=== PATIENT | female | born 1985 | race Two or more races ===

== ENCOUNTER 2025-08-26 11:44 | Inpatient (IN) | payer MEDICAID, OTHER ==
[~2025-08-26] VITALS: Ht 157.5 cm; Wt 67.8 kg
--- NOTE | 2025-08-26 12:09 | ED.PDOC ---
History of Present Illness HPI Comments This is a 40 year old female presenting to the ED with chief complaint of flu- like illness. Patient reports that she has been experiencing neck pain with associated upper back pain, right shoulder pain, nasal congestion, headache, fever, chills, epigastric pain, nausea, and vomiting for the past 3 days. Joanne ent relays that she has take Tylenol and Ibuprofen with no relief in her symptoms noted. Patient denies any hematemesis, dysuria, hematuria, flank pain, diarrhea, chest pain, cough, or SOB. Chief Complaint: Nausea/Vomiting Time Seen by MD: 12:07 Reviewed Notes: Nurses Notes, Medications, Allergies Allergies: Coded Allergies: NO KNOWN ALLERGIES (Unverified , 08/26/25) Information Source: Patient Mode of Arrival: Ambulatory Severity: Moderate Timing: Days Duration: Since onset Prehospital treatment: None Past Medical History PAST MEDICAL HISTORY: Denies Surgical History: Surgical History (Other): Intestinal surgery AEROSPACE ENGINEER History: No Pertinent AEROSPACE ENGINEER History Family History Family History: Reviewed,noncontributory to illness Social History Smoker: Non-Smoker Alcohol: Denies ETOH Use Drugs: Denies Drug Use Lives In: Home Constitutional: reports: chills, fever; denies: diaphoresis, fatigue, malaise, sweats, weakness, others EENTM: reports: nose congestion; denies: blurred vision, double vision, ear bleeding, ear discharge, ear drainage, ear pain, ear ringing, eye pain, eye redn ess, hearing loss, mouth pain, mouth swelling, nasal discharge, nose bleeding, nose pain, photophobia, tearing, throat pain, throat swelling, voice changes, others Respiratory: denies: cough, hemoptysis, orthopnea, SOB at rest, shortness of breath, SOB with excertion, stridor, wheezing, others Cardiovascular: denies: chest pain, dizzy spells, diaphoresis, Dyspnea on exertion, edema, irregular heart beat, left arm pain, lightheadedness, palpitations, PND, syncope, others Gastrointestinal: reports: abdominal pain, nausea, vomiting; denies: abdomen distended, blood streaked bowels, constipated, diarrhea, dysphagia, difficulty swallowing, hematemesis, melena, poor appetite, poor fluid intake, rectal bleeding, rectal pain, others Genitourinary: denies: abnormal vagina bleeding, burning, dyspareunia, dysuria, flank pain, frequency, hematuria, incontinence, pain, , vagina discharge, urgency, others Neurological: reports: headache; denies: dizziness, fainting, left sided numbness, left sided weakness, numbness, paresthesia, pre-existing deficit, right sided numbness, right sided weakness, seizure, speech problems, tingling, tremors, weakness, others Musculoskeletal: reports: neck pain, others (Rt shoulder pain); denies: back pain, gout, joint pain, joint swelling, muscle pain, muscle stiffness Integumetry: denies: bruises, change in color, change in hair/nails, dryness, laceration, lesions, lumps, rash, wounds, others Allergic/Immunocompromised: denies: Difficulty Healing, Frequent Infections, Hives, Itching, others Hematologic/Lymphatic: denies: anemia, blood clots, easy bleeding, easy bruising, swollen glands, others Endocrine: denies: excessive hunger, excessive sweating, excessive thirst, excessive urination, flushing, intolerance to cold, intolerance to heat, unexplained weight gain, unexplained weight loss, others Psychiatric: denies: anxiety, bipolar disorder, depression, hopeless, panic disorder, schizophrenia, sleepless, suicidal, others All Other Systems: Reviewed and Negative Physical Exam General Appearance: Moderate Distress HEENT: Normal ENT Inspection, Pharynx Normal, TMs Normal Neck: Full Range of Motion, Non-Tender, Normal, Normal Inspection Respiratory: Chest Non-Tender, Lungs Clear, No Accessory Muscle Use, No Respiratory Distress, Normal Breath Sounds Cardiovascular: No Edema, No JVD, No Murmur, No Gallop, Normal Peripheral Pulses, Regular Rate/Rhythm Breast Exam: Deferred Gastrointestinal: Epigastric, No Organomegaly, No Pulsatile Mass, Normal Bowel Sounds, Soft, Tenderness Genitalia: Deferred Pelvic: Deferred Rectal: Deferred Extremities: No calf tenderness, Normal capillary refill, No pedal edema Musculoskeletal : Apperance: Normal Neurologic: Alert, milk treater II-XII nml as Tested, Motor Weakness, Normal Affect, Normal Mood, No Sensory Deficits Cerebellar Function: Normal Reflexes: Normal Skin: Dry, Normal Color, Warm Lymphatic: No Adenopathy Was a procedure done? Was a procedure done?: No Differential Dx Considerations may include: Gallstones, generalized weakness, electrolyte imbalance X-Ray, Labs, Meds, VS Vital Signs Date Time Temp Pulse Resp B/P (MAP) Pulse Ox O2 Delivery O2 Flow Rate FiO2 08/26/25 19:08 98.1 84 20 135/82 (99) 100 98.1 08/26/25 19:08 84 20 100 Room Air 08/26/25 14:29 98.2 75 16 103/74 (84) 98 98.2 08/26/25 12:52 90 16 99 Room Air* 0 21 08/26/25 12:52 98.3 90 16 121/82 (95) 99 98.3 08/26/25 11:46 98.0 84 16 122/71 99 98.0 Lab Test 08/26/25 12:30 08/26/25 12:21 Range/Units Urine Color Light-yellow Yellow Urine Clarity Clear Clear Urine pH 6.5 5.0-9.0 Urine Specific [place] 1.010 1.001-1.035 Urine Protein Negative Negative Urine Ketones Negative Negative Urine Blood Negative Negative /uL Urine Nitrite Negative Negative Urine Bilirubin Negative Negative Urine Urobilinogen Normal Negative mg/dL Urine Leukocyte Esterase Negative Negative /uL Urine RBC 1 0 - 4 /hpf Urine Microscopic WBC 1 0-5 /HPF Urine Squamous Epithelial Cells Few <5 /hpf Urine Bacteria None seen None Seen /hpf Urine Glucose Normal Normal mg/dL Urine Test Negative Negative White Blood Count 6.3 4.4-10.8 10^3/uL Red Blood Count 4.31 4.0-5.20 10^6/uL Hemoglobin 14.0 12.2-16.2 g/dL Hematocrit 41.1 36.0-46.0 % Mean Corpuscular Volume 95.4 80.0-100.0 fL Mean Corpuscular Hemoglobin 32.5 H 28.0-32.0 pg Mean Corpuscular Hemoglobin Concent 34.1 32.0-36.0 g/dL Red Cell Distribution Width 13.0 11.8-14.3 % Platelet Count 397 140-450 10^3/uL Mean Platelet Volume 6.9 6.9-10.8 fL Neutrophils (%) (Auto) 61.2 37.0-80.0 % Lymphocytes (%) (Auto) 28.0 10.0-50.0 % Monocytes (%) (Auto) 8.1 0.0-12.0 % Eosinophils (%) (Auto) 1.9 0.0-7.0 % Basophils (%) (Auto) 0.8 0.0-2.0 % Neutrophils # (Auto) 3.8 1.6-8.6 10 ^3/uL Lymphocytes # (Auto) 1.8 0.4-5.4 10 ^3/uL Monocytes # (Auto) 0.5 0-1.3 10 ^3/uL Eosinophils # (Auto) 0.1 0-0.8 10 ^3/uL Basophils # (Auto) 0 0-0.2 10 ^3/uL Nucleated Red Blood Cells 0.0 % Sodium Level 139 136-145 mmol/L Potassium Level 3.7 3.5-5.1 mmol/L Chloride Level 103 98-107 mmol/L Carbon Dioxide Level 26 20-31 mmol/L Anion Gap 10 5-15 Blood Urea Nitrogen 10 9-23 mg/dL Creatinine 0.68 0.550-1.02 mg/dL Glomerular Filtration Rate Calc 111 >90 mL/min BUN/Creatinine Ratio 14.7 10.0-20.0 Serum Glucose 88 74-106 mg/dL Calcium Level 9.2 8.7-10.4 mg/dL Current Medications Medications (Trade) Dose Ordered Sig/Sapna Route Start Time Stop Time Status Last Admin Sodium Chloride 1,000 ml @ 1,000 mls/hr Q1H ONCE IV 08/26/25 12:15 08/26/25 13:14 DC 08/26/25 12:51 Ondansetron HCl (Zofran) 4 mg ONCE ONCE IV 08/26/25 12:15 08/26/25 12:16 DC 08/26/25 12:51 Gallbladder US indicates: 1. Liver measures 15.3 cm in length with homogeneous hepatic parenchyma. 2. Sludge noted in the gallbladder no gallbladder wall thickening or dilated common bile duct. Negative sonographic diaz's sign. 3. Right kidney measures 9.3 cm in length with no hydronephrosis. Chest XR indicates: No acute cardiopulmonary disease. The patient's CBC is within normal limits. The chemistry panel is within normal limits The patient was given normal saline as a bolus. The patient was given Zofran 4 mg IV push for nausea. At this time, the urine test is negative The patient is being admitted with a diagnosis of abdominal pain and gallbladder sludge. Images Reviewed?: Images reviewed and evaluated by me Time of 1ST Reevaluation: 16:00 Reevaluation 1ST: Unchanged Patient Education/Counseling: Diagnosis, Treatment, Prognosis Family Education/Counseling: No Family Present SEPSIS Sepsis Screen Date sepsis recognized/suspect: Aug 26, 2025 Time Sepsis recognized/suspect: 1149 Recent Procedure: No On Antibiotic Therapy: No Respiratory Rate >20: No Heart Rate >90: No Temp<36 C (96.8 F) or >38.3 C: No SBP <90 or MAP <65 mmHG: No New Acute Mental Status Change: No Is the patient on CPAP, BIPAP,: No Physician Orders Chest Two Views Routine (08/26/25 12:01) Heplock Iv (08/26/25 12:01) Gallbladder (08/26/25 12:01) Vital Signs Date Time Temp Pulse Resp B/P (MAP) Pulse Ox O2 Delivery O2 Flow Rate FiO2 08/26/25 19:08 98.1 84 20 135/82 (99) 100 98.1 08/26/25 19:08 84 20 100 Room Air 08/26/25 14:29 98.2 75 16 103/74 (84) 98 98.2 08/26/25 12:52 90 16 99 Room Air* 0 21 08/26/25 12:52 98.3 90 16 121/82 (95) 99 98.3 08/26/25 11:46 98.0 84 16 122/71 99 98.0 Laboratory Tests Test 08/26/25 12:21 White Blood Count 6.3 10^3/uL (4.4-10.8) Medications Medications Dose Ordered Sig/Sapna Route Start Time Stop Time Status Last Admin Dose Admin Ondansetron HCl 4 mg ONCE ONCE IV 08/26/25 12:15 08/26/25 12:16 DC 08/26/25 12:51 Sodium Chloride 1,000 ml @ 1,000 mls/hr Q1H ONCE IV 08/26/25 12:15 08/26/25 13:14 DC 08/26/25 12:51 Departure 1 Departure Time of Disposition: 16:00 Impression: Primary Impression: Intractable abdominal pain Additional Impression: Gallbladder sludge Disposition: ADMITTED INPATIENT Admit to: Med Surg Condition: Fair Critical Care Note Critical Care Time?: No Stability Stability form required: Yes Unstable for transfer: ED Physician Assesment (Clinical assesment) Heart Score Heart Score: Heart Score Response (Comments) Value History N/A 0 EKG N/A 0 Age N/A 0 Risk Factors N/A 0 Troponin N/A 0 Total 0 I personally scribed for ANTHONY BOBBY MD ([email or web address]) on 08/26/25 at 12:09. Electronically submitted by Thom Beach ([email or web address]). I personally scribed for ANTHONY BOBBY MD ([email or web address]) on 08/26/25 at 14:03. Electronically submitted by Thom Beach ([email or web address]). I personally scribed for ANTHONY BOBBY MD ([email or web address]) on 08/26/25 at 15:42. Electronically submitted by Thom Beach ([email or web address]). ANTHONY BOBBY MD Aug 26, 2025 12:09
[2025-08-26 12:36] LABS: Hematocrit 41.1 % (36.0-46.0); Hemoglobin 14.0 g/dL (12.2-16.2); Mean Corpuscular Hemoglobin 32.5 pg (28.0-32.0); Mean Corpuscular Volume 95.4 fL (80.0-100.0); Nucleated Red Blood Cells % 0.0 %
[2025-08-26 12:43] LABS: Chloride 103 mmol/L (98-107); Potassium 3.7 mmol/L (3.5-5.1); Sodium 139 mmol/L (136-145)
[2025-08-26 12:44] LABS: Anion Gap 10 (5-15); Carbon Dioxide 26 mmol/L (20-31)
[2025-08-26 12:45] LABS: Calcium 9.2 mg/dL (8.7-10.4)
[2025-08-26 12:49] LABS: BUN/Creatinine Ratio 14.7 (10.0-20.0); Blood Urea Nitrogen 10 mg/dL (9-23); Glucose 88 mg/dL (74-106)
[2025-08-26] MEDS: SODIUM CHLORIDE 0.9% 1,000 ML IV ONE (12:51)
[2025-08-26] MEDS: ONDANSETRON HCL 4 MG/2 ML VIAL IV ONE (12:51)
[2025-08-26 12:52] VITALS: PULSE 90; RESP 16; O2SAT 99
--- NOTE | 2025-08-26 12:53 | DVH ---
INDICATION: pain TECHNIQUE: Multiple real-time sonographic images of the abdomen were obtained. COMPARISON: None FINDINGS: The liver is homogenous in echogenicity. The liver measures 15.3 cm. No intrahepatic bilia ry ductal dilatation is noted. The gallbladder wall measures 0.18 cm and is unremarkable. Sludge noted in the gallbladder. No galls tones is seen. The common duct measures 0.43 cm and is unremarkable. No pericholecystic fluid is n oted. NEGATIVE SONOGRAPHIC GOEL'S SIGN The right kidney measures 9.3cm. No hydronephrosis. The pancreas is not well visualized due to obscuration from bowel gas. The visualized portions of the IVC and aorta are grossly unremarkable. IMPRESSION: 1. Liver measures 15.3 cm in length with homogeneous hepatic parenchyma. 2. Sludge noted in the gallbladder no gallbladder wall thickening or dilated common bile duct. Negati ve sonographic goel's sign. 3. Right kidney measures 9.3 cm in length with no hydronephrosis.
[2025-08-26 14:46] LABS: Urine Protein, UAD Negative (Negative)
--- NOTE | 2025-08-26 15:28 | DVH ---
XY CHEST TWO VIEWS ROUTINE CLINICAL HISTORY: pain COMPARISON: None TECHNIQUE: Frontal and lateral view of the chest was obtained FINDINGS: Lines and Tubes: None Lungs: No focal consolidation. Pleura: No effusion. No pneumothorax. Cardiomediastinal contours: Unremarkable Bones: No acute osseous abnormality. IMPRESSION: No acute cardiopulmonary disease.
[2025-08-26 20:53] LABS: Alanine Aminotransferase 28.0 U/L (7-40); Alkaline Phosphatase 77.0 U/L (46-116); Bilirubin, Direct 0.2 mg/dL (<0.3); Bilirubin, Total 0.6 mg/dL (0.2-1.0); Magnesium 2.0 mg/dL (1.6-2.6); Total Protein 7.9 g/dL (5.7-8.2)
[2025-08-26 20:55] LABS: Amphetamine Screen, Urine Neg (NEGATIVE); Barbiturate Scree,Urine Neg (NEGATIVE); Benzodiazephine Screen, Urine Neg (NEGATIVE); Cannabinoid Screen, Urine Neg (NEGATIVE); Cocaine Screen, Urine Neg (NEGATIVE); Opiate Scree,Urine Neg (NEGATIVE); Phencyclidine Screen, Urine Neg (NEGATIVE)
[2025-08-26 20:55] LABS: Albumin 4.9 g/dL (3.2-4.8)
--- NOTE | 2025-08-26 20:56 | DVHHPRES ---
History of Present Illness Resident Creating Document: ANASTACIO GORDON RESIDENT History of Present Illness Ms. Coleman 40-year-old female with prior medical history of SBO status post exploratory laparotomy in 2006, who presents today with chief complaint of right shoulder pain and generalized weakness. She refers a week ago she slipped when getting in the shower and went to grab onto the wall to avoid the fall when she felt a pop in her right shoulder. Since then, the patient has had intense sharp pain in the right shoulder, intensity 10/10, aggravated by moving her arm, with no relieving factors. Additionally refers 4 days of febrile sensation, chills, headache, fatigue, and burning epigastric pain, nonradiating, 4/10 intensity, without aggravating or relieving factors . She denies weakness and numbness of her right arm or hand,cough, chest pain, rhinorrhea, nausea, vomiting, diarrhea, and palpitations. Due to persistence of symptoms she so ught medical attention at the emergency department. On evaluation in the ED, the patient was in mild distress, vital signs were stable. Initial labs show CBC and chemical range. UA and UDS without significant findings. Chest x-ray shows no acute cardiopulmonary disease. Gallbladder ultrasound shows sludge without wall thickening. X-ray of the right shoulder shows calcification in the soft tissue adjacent to the greater tuberosity of the proximal right humerus which may represent an avulsion fracture. She was admitted for further workup and management. Prior medical history: SBO status post exploratory laparotomy in 2006 Prior surgical history: Exploratory laparotomy, 1 Allergies: Denies Social: Denies any use of drugs, alcohol, and tobacco. Status with her mother and her children and feels safe. Review of Systems Review of Systems Constitutional: Refers chills, faitgue, febrile sensation Denies weight loss\. HEENT: Denies changes in vision and hearing. Respiratory: Denies shortness of breath and cough Cardiovascular: Denies chest discomfort or palpitations GI: Denies abdominal distention, abdominal pain, diarrhea : Denies dysuria and urinary frequency. Musculoskeletal: Refers pain in right shoulder with limited mobility Skin: Denies rash and pruritus. Neurological: denies dizziness headache vision or hearing problems Allergies: Coded Allergies: NO KNOWN ALLERGIES (Unverified , 08/26/25) Exam Vital Signs Vital Signs Date Time Temp Pulse Resp B/P (MAP) Pulse Ox O2 Delivery O2 Flow Rate FiO2 10/16/25 19:08 98.1 84 20 135/82 (99) 100 98.1 08/26/25 19:08 Room Air 08/26/25 12:52 0 21 Exam General: The patient alert and oriented in person place and time. Patient following commands HEENT: Normocephalic, atraumatic, normal reactive pupils, EOM intact, pink conjunctiva, pink moist mucous membrane Respiratory/pulmonary: Bilateral chest expansion, no pain on palpation of chest wall, clear lungs bilaterally, vesicular murmurs present in almost all lung hernandez, no associated crackles or wheezes. Cardiovascular: Normal RRR, normal S1 and S2, no murmurs Abdomen: Abdomen nondistended, normal bowel sounds, soft, there is no pain to palpation in any of the abdominal quadrants, no palpable masses. Extremities: No deformities, there is no peripheral edema present at the lower extremities, normal pulses, pain on palpation of right shoulder, limited forward mobility and abduction of right arm due to pain on passive movement and active movements, patient is unable to abduct right arm greater than 45, exam of left arm and shoulder without alterations Skin: No rashes or pruritus, there is no sacral edema present at this time. Neurological: Intact cranial nerves with no focal neurologic deficits Labs/Xrays Labs Test 08/26/25 12:30 08/26/25 12:21 Range/Units Urine Color Light-yellow Yellow Urine Clarity Clear Clear Urine pH 6.5 5.0-9.0 Urine Specific [place] 1.010 1.001-1.035 Urine Protein Negative Negative Urine Ketones Negative Negative Urine Blood Negative Negative /uL Urine Nitrite Negative Negative Urine Bilirubin Negative Negative Urine Urobilinogen Normal Negative mg/dL Urine Leukocyte Esterase Negative Negative /uL Urine RBC 1 0 - 4 /hpf Urine Microscopic WBC 1 0-5 /HPF Urine Squamous Epithelial Cells Few <5 /hpf Urine Bacteria None seen None Seen /hpf Urine Glucose Normal Normal mg/dL Urine Test Negative Negative Urine Opiates Screen Neg NEGATIVE Urine Fentanyl Screen Neg NEGATIVE Urine Barbiturates Screen Neg NEGATIVE Urine Phencyclidine Screen Neg NEGATIVE Urine Amphetamines Screen Neg NEGATIVE Urine Benzodiazepines Screen Neg NEGATIVE Urine Cocaine Screen Neg NEGATIVE Urine Cannabinoids Screen Neg NEGATIVE White Blood Count 6.3 4.4-10.8 10^3/uL Red Blood Count 4.31 4.0-5.20 10^6/uL Hemoglobin 14.0 12.2-16.2 g/dL Hematocrit 41.1 36.0-46.0 % Mean Corpuscular Volume 95.4 80.0-100.0 fL Mean Corpuscular Hemoglobin 32.5 H 28.0-32.0 pg Mean Corpuscular Hemoglobin Concent 34.1 32.0-36.0 g/dL Red Cell Distribution Width 13.0 11.8-14.3 % Platelet Count 397 140-450 10^3/uL Mean Platelet Volume 6.9 6.9-10.8 fL Neutrophils (%) (Auto) 61.2 37.0-80.0 % Lymphocytes (%) (Auto) 28.0 10.0-50.0 % Monocytes (%) (Auto) 8.1 0.0-12.0 % Eosinophils (%) (Auto) 1.9 0.0-7.0 % Basophils (%) (Auto) 0.8 0.0-2.0 % Neutrophils # (Auto) 3.8 1.6-8.6 10 ^3/uL Lymphocytes # (Auto) 1.8 0.4-5.4 10 ^3/uL Monocytes # (Auto) 0.5 0-1.3 10 ^3/uL Eosinophils # (Auto) 0.1 0-0.8 10 ^3/uL Basophils # (Auto) 0 0-0.2 10 ^3/uL Nucleated Red Blood Cells 0.0 % Sodium Level 139 136-145 mmol/L Potassium Level 3.7 3.5-5.1 mmol/L Chloride Level 103 98-107 mmol/L Carbon Dioxide Level 26 20-31 mmol/L Anion Gap 10 5-15 Blood Urea Nitrogen 10 9-23 mg/dL Creatinine 0.68 0.550-1.02 mg/dL Glomerular Filtration Rate Calc 111 >90 mL/min BUN/Creatinine Ratio 14.7 10.0-20.0 Serum Glucose 88 74-106 mg/dL Hemoglobin A1c 4.9 <5.7 % A1C Calcium Level 9.2 8.7-10.4 mg/dL Phosphorus Level 3.2 2.4-5.1 mg/dL Magnesium Level 2.0 1.6-2.6 mg/dL Total Bilirubin 0.6 0.2-1.0 mg/dL Direct Bilirubin 0.2 <0.3 mg/dL Aspartate Amino Transferase (AST) 23 13-40 U/L Alanine Aminotransferase (ALT) 28 7-40 U/L Alkaline Phosphatase 77 46-116 U/L Total Protein 7.9 5.7-8.2 g/dL Albumin 4.9 H 3.2-4.8 g/dL Vitamin B12 Level 1157 H 211-911 pg/mL SEPSIS Sepsis Screen Date sepsis recognized/suspect: Aug 26, 2025 Time Sepsis recognized/suspect: 1909 Recent Procedure: No On Antibiotic Therapy: No Respiratory Rate >20: No Heart Rate >90: No Temp<36 C (96.8 F) or >38.3 C: No SBP <90 or MAP <65 mmHG: No New Acute Mental Status Change: No Is the patient on CPAP, BIPAP,: No Physician Orders Magnesium (08/26/25 20:27) Hepatic Panel (08/26/25 20:27) Drug Screen (08/26/25 20:27) Rapid Influenza A&B (08/26/25 20:27) Covid19 Antigen Elvira (08/26/25 ) Phosphorus (08/26/25 20:27) Thyroid Stimulating Hormone (08/26/25 20:27) Vitamin D, 25-Hydroxy (08/26/25 20:27) Complete Blood Count (08/27/25 04:00) Basic Metabolic Panel (08/27/25 04:00) Allergies (08/26/25 20:47) Condition: Stable (08/26/25 20:47) Admit (08/26/25 20:47) Code Status (08/26/25 20:47) Vital Signs .PER UNIT PROTOCOL (08/26/25 20:47) Review Orders With Adm.Md (08/26/25 20:47) Regular Diet (08/27/25 Breakfast) Notify Md Of Changes From Base (08/26/25 20:47) Advance Directive (08/26/25 20:47) Patient Condition (08/26/25 20:47) Allergies (08/26/25 20:47) Stat Ekg For Chest Pain (08/26/25 20:47) Notify Md Of Changes From Base (08/26/25 20:47) Emergency Dysrhythmia Protocol (08/26/25 20:47) Rhythm Strips Once Every Shift (08/26/25 20:47) R Shoulder 2+ View Xray (08/26/25 20:47) NS (08/26/25 21:00) NS (08/26/25 21:00) Ketorolac Injection (Toradol Injection) (08/26/25 21:00) Ketorolac Injection (Toradol Injection) (08/26/25 21:00) Acetaminophen Tablet (Tylenol Tablet) (08/26/25 21:00) Pantoprazole (Protonix) (08/26/25 21:00) Pantoprazole (Protonix) (08/27/25 10:00) Vital Signs Date Time Temp Pulse Resp B/P (MAP) Pulse Ox O2 Delivery O2 Flow Rate FiO2 08/26/25 19:08 98.1 84 20 135/82 (99) 100 98.1 08/26/25 19:08 84 20 100 Room Air 08/26/25 14:29 98.2 75 16 103/74 (84) 98 98.2 Laboratory Tests Test 08/26/25 12:21 White Blood Count 6.3 10^3/uL (4.4-10.8) Medications Medications Dose Ordered Sig/Sapna Route Start Time Stop Time Status Last Admin Dose Admin Ondansetron HCl 4 mg ONCE ONCE IV 08/26/25 12:15 08/26/25 12:16 DC 08/26/25 12:51 4 MG Sodium Chloride 1,000 ml @ 1,000 mls/hr Q1H ONCE IV 08/26/25 12:15 08/26/25 13:14 DC 08/26/25 12:51 1,000 MLS/HR Assessment/Plan Assessment/Plan Assessment and Plan: Intractable Arm Pain secondary to Right shoulder Avulsion fracture R/o Rotator cuff tear - Right shoulder xray: Calcification is noted in the soft tissue adjacent to the greater tuberosity of the proximal right humerus. This may represent an avulsion fracture calcified tendinitis. - Toradol 15 mg IV q 6 hours PRN - [place] 5/325 mg PO once - Orthopedics has been consulted GERD - Protonix 40 mg IV daily Biliary sludge - with gallbladder ultrasound: Sludge in the gallbladder no gallbladder wall t hickening or dilated bile duct. Negative sonographic Thapa's sign. Viral syndrome Influenza ruled out - Influenza A and B negative Rule out ACS - Ordered EKG, troponin and Echocardiogram Covid ruled out - COVID negative Diet: Regular DVT prophylaxis: Patient is ambulatory GI prophylaxis: Protonix 40 mg IV daily Case discussed with Dr. Huang Goals of care discussed with the patient for over 25 minutes. FULL CODE. Plan discussed with: Patient, Other (Nurses) My Orders Orders - ANASTACIO GORDON RESIDENT Procedure Category Date Status Time Magnesium LAB 08/26/25 In Process 20:27 Hepatic Panel LAB 08/26/25 In Process 20:27 Drug Screen LAB 08/26/25 In Process 20:27 Rapid Influenza A&B LAB 08/26/25 Logged 20:27 Covid19 Antigen Elvira LAB 08/26/25 Logged Phosphorus LAB 08/26/25 In Process 20:27 Thyroid Stimulating LAB 08/26/25 In Process Hormone 20:27 Vitamin D, 25-Hydroxy LAB 08/26/25 In Process 20:27 Complete Blood Count LAB 08/27/25 Verified 04:00 Basic Metabolic Panel LAB 08/27/25 Verified 04:00 Allergies [facility] 08/26/25 Transmitted 20:47 Condition: Stable [facility] 08/26/25 Transmitted 20:47 Admit ADMIT 08/26/25 Transmitted 20:47 Code Status CODE 08/26/25 Transmitted 20:47 Vital Signs [facility] 08/26/25 Verified 20:47 Review Orders With [facility] 08/26/25 Verified Adm. 20:47 Regular Diet DIET 08/27/25 Verified Breakfast Notify Md Of Changes [facility] 08/26/25 Verified From Base 20:47 Advance Directive [facility] 08/26/25 Verified 20:47 Patient Condition ORDERS 08/26/25 Verified 20:47 Allergies [facility] 08/26/25 Verified 20:47 Stat Ekg For Chest [facility] 08/26/25 Verified Pain 20:47 Notify Md Of Changes [facility] 08/26/25 Verified From Base 20:47 Emergency Dysrhythmia [facility] 08/26/25 Verified Protocol 20:47 Rhythm Strips Once [facility] 08/26/25 Verified Every Shift 20:47 R Shoulder 2+ View XY 08/26/25 Transmitted Xray 20:47 NS PHA 08/26/25 Verified 21:00 NS PHA 08/26/25 Verified 21:00 Ketorolac Injection PHA 08/26/25 Verified (Toradol Injection) 21:00 Ketorolac Injection PHA 08/26/25 Verified (Toradol Injection) 21:00 Acetaminophen Tablet PHA 08/26/25 Verified (Tylenol Tablet) 21:00 Pantoprazole PHA 08/26/25 Verified (Protonix) 21:00 Pantoprazole PHA 08/27/25 Verified (Protonix) 10:00 Date of Service: Aug 26, 2025 Billing Provider: MIRANDA HUANG MD Common Visit Codes: [id number] INP/OBS CARE (HIGH) Secondary Visit Codes: [id number] CARE PLAN 30 MINUTES ANASTACIO GORDON RESIDENT Aug 26, 2025 20:56 GILMER YANG RESIDENT Aug 27, 2025 05:14
[2025-08-26] MEDS: SODIUM CHLORIDE 0.9% 500 ML IV ONE (21:00)
[2025-08-26] MEDS ORDERED: ACETAMINOPHEN 325 MG TAB PO PRN (21:00)
--- NOTE | 2025-08-26 21:31 | DVH ---
CLINICAL INDICATION: Recent trauma w. pain TECHNIQUE: 3 radiographic views of the right shoulder were obtained. Comparison: None FINDINGS/IMPRESSION: Calcification is noted in the soft tissues adjacent to the greater tuberosity of the proximal right h umerus. This may represent an avulsion fracture calcified tendinitis. There are no prior studies for comparison. If symptoms persist consider MRI of the shoulder.
[2025-08-26] MEDS: KETOROLAC TROMETH 30 MG/ML 1ML VIAL IV ONE (21:50)
[2025-08-26] MEDS: PANTOPRAZOLE 40 MG/10 ML VIAL INJ IV ONE (21:50)
[2025-08-26 22:06] VITALS: BP 122/77; PULSE 65; RESP 16; TEMP 98.1; O2SAT 99
[2025-08-26 22:36] VITALS: BP 122/77; PULSE 65; RESP 16; TEMP 98.1; O2SAT 99
[2025-08-26] MEDS: SODIUM CHLORIDE 0.9% 1,000 ML IV SCH (23:00)
[2025-08-26 23:36] LABS: COVID19 ANTIGEN SOFIA FIA NEGATIVE (NEGATIVE)
[2025-08-27 01:00] VITALS: BP 113/72; PULSE 76; RESP 16; TEMP 97.7; O2SAT 96
[2025-08-27] MEDS: HYDROcodone-ACET 5/325MG TAB PO ONE (03:00)
[2025-08-27] MEDS: KETOROLAC TROMETH 30 MG/ML 1ML VIAL IV PRN (03:25)
[2025-08-27 05:00] VITALS: BP 107/75; PULSE 68; RESP 16; TEMP 97.6; O2SAT 98
[2025-08-27 07:27] LABS: Hematocrit 38.8 % (36.0-46.0); Hemoglobin 13.3 g/dL (12.2-16.2); Mean Corpuscular Hemoglobin 32.7 pg (28.0-32.0); Mean Corpuscular Volume 95.3 fL (80.0-100.0); Nucleated Red Blood Cells % 0.0 %
[2025-08-27 07:41] LABS: Anion Gap 12 (5-15); Carbon Dioxide 23 mmol/L (20-31); Chloride 106 mmol/L (98-107); Potassium 3.6 mmol/L (3.5-5.1); Sodium 141 mmol/L (136-145)
[2025-08-27 07:48] LABS: BUN/Creatinine Ratio 9.7 (10.0-20.0); Glucose 76 mg/dL (74-106)
[2025-08-27 07:52] LABS: Calcium 9.0 mg/dL (8.7-10.4)
[2025-08-27 07:53] LABS: Blood Urea Nitrogen 6 mg/dL (9-23)
[2025-08-27 09:00] VITALS: BP 123/87; PULSE 63; RESP 16; TEMP 98.3; O2SAT 97
[2025-08-27] MEDS: PANTOPRAZOLE 40 MG/10 ML VIAL INJ IV SCH (09:51)
--- NOTE | 2025-08-27 12:31 | DVHPN2 ---
Subjective The patient is seen and examined at bedside. No complaint today. Reviewed: Care Plan, H&P, Labs, Medications, Previous Orders, Radiology Changes from previous H/P or p: No Changes Objective Vitals Vital Signs Date Time Temp Pulse Resp B/P (MAP) Pulse Ox O2 Delivery O2 Flow Rate FiO2 08/27/25 09:00 98.3 63 16 123/87 (99) 97 98.3 08/26/25 22:36 Room Air* 0 21 Intake/Output Intake and Output 08/27/25 07:00 Intake Total 1240 ml Balance 1240 ml Intake Oral 240 ml IV Total 1000 ml # Voids 1 General Appearance: Alert, Oriented X3, Cooperative, No acute distress HEENT: Atraumatic, PERRLA, EOMI, Mucous membr. moist/pink Neck: Supple Lungs: Clear to auscultation, Normal air movement Cardiovascular: Regular rate, Normal S1, Normal S2, No murmurs, Gallops, Rubs Abdomen: Normal bowel sounds, Soft, No tenderness Neuro: Cranial nerves 3-12 NL Psych/Mental Status: Mental status NL Medications Current Medications Medications Dose Ordered Sig/Sapna Route Start Time Stop Time Status Last Admin Dose Admin Sodium Chloride 1,000 ml @ 50 mls/hr Q20H IV 08/26/25 21:00 08/26/25 23:00 50 MLS/HR Ketorolac Tromethamine 15 mg Q6HPRN PRN IV 08/27/25 03:00 09/01/25 02:59 08/27/25 11:50 15 MG Acetaminophen 325 mg Q4HP PRN PO 08/26/25 21:00 Hold Pantoprazole Sodium 40 mg DAILY IV 08/27/25 10:00 08/27/25 09:51 40 MG Laboratory Results Laboratory Tests 08/27/25 05:25 Chemistry Test 08/27/25 05:25 Calcium Level 9.0 mg/dL (8.7-10.4) Urinalysis Test 08/26/25 12:30 Urine Color Light-yellow (Yellow) Urine Clarity Clear (Clear) Urine pH 6.5 (5.0-9.0) Urine Specific [place] 1.010 (1.001-1.035) Urine Protein Negative (Negative) Urine Ketones Negative (Negative) Urine Blood Negative /uL (Negative) Urine Nitrite Negative (Negative) Urine Bilirubin Negative (Negative) Urine Urobilinogen Normal mg/dL (Negative) Urine Leukocyte Esterase Negative /uL (Negative) Urine RBC 1 /hpf (0 - 4) Urine Microscopic WBC 1 /HPF (0-5) Urine Squamous Epithelial Cells Few /hpf (<5) Urine Bacteria None seen /hpf (None Seen) Urine Glucose Normal mg/dL (Normal) Urine Test Negative (Negative) Labs and/or images reviewed: Labs reviewed by me Assessment/Plan Assessment/Plan Intractable Arm Pain secondary to Right shoulder Avulsion fracture R/o Rotator cuff tear - Right shoulder xray: Calcification is noted in the soft tissue adjacent to the greater tuberosity of the proximal right humerus. This may represent an avulsion fracture calcified tendinitis. GERD Biliary sludge Viral syndrome Continuing current management. Continuing with pain medication. Waiting for orthopedic surgeon to see the patient. This medical document was created using an electronic medical record system with [employer] direct computerized dictation system. Although this document has been carefully reviewed, there may still be some phonetic and typographical errors. These areas are purely typographical due to imperfections of the software programs, and do not reflect any compromise in the patient's medical care. Plan discussed with: Patient Date of Service: Aug 27, 2025 Billing Provider: ALPA RAMOS MD Common Visit Codes: [id number] INP/OBS CARE(HIGH) ALPA RAMOS MD Aug 27, 2025 12:31
[2025-08-27 13:00] VITALS: BP 118/82; PULSE 65; RESP 16; TEMP 98; O2SAT 97
--- NOTE | 2025-08-27 14:00 | DVH ---
CLINICAL INFORMATION: Pain. TECHNIQUE: Multisequence multiplanar MRI images of the right shoulder were obtained without contrast . COMPARISON: XY R SHOULDER 2+ VIEW XRAY on DOS: 08/26/25 FINDINGS: Acromioclavicular joint: There is mild acromioclavicular hypertrophy and mild edema. There is type 2 acromion. Small amount of fluid in the subacromial / subdeltoid bursa. Rotator cuff tendons: Mild tendinosis of the distal supraspinatus and infraspinatus tendons. Mild bur jess surface fraying of the distal infraspinatus tendon. Subscapularis and teres minor tendons are int act. Biceps tendon: No significant tendinosis. No evidence of attrition or tear. Labrum: No labral tear identified. Bones: No fracture or focal marrow contusion. Muscles: There is edema and small to moderate amount of fluid interposed along the fascial plane betw een the posterior deltoid muscle and the infraspinatus and teres minor muscles, may be due to strain and/or myofascial tear in the appropriate clinical setting. Other: Motion artifact limits evaluation. IMPRESSION: 1. Motion limited study. 2. Tendinosis of the distal supraspinatus and infraspinatus tendons with mild bursal surface fraying of the distal infraspinatus tendon. 3. Edema and small to moderate amount of fluid interposed between the posterior deltoid muscle and in fraspinatus and teres minor muscles, may be due to strain and/or myofascial tear. Correlate with clin ical findings. 4. Mild acromioclavicular hypertrophy with mild subacromial / subdeltoid bursitis.
[2025-08-27 17:00] VITALS: BP 115/81; PULSE 69; RESP 17; TEMP 98.1; O2SAT 99
[2025-08-27 21:00] VITALS: BP 126/90; PULSE 67; RESP 20; TEMP 98.3; O2SAT 98
[2025-08-28 00:54] VITALS: BP 122/77; PULSE 72; RESP 20; TEMP 98.1; O2SAT 98
[2025-08-28 05:00] VITALS: BP 118/77; PULSE 67; RESP 20; TEMP 97.7; O2SAT 97
--- NOTE | 2025-08-28 06:47 | DVHINCON2 ---
Date of service: Aug 28, 2025 Reason for Consultation Right shoulder pain History of Present Illness 40 yo F sp mechanical fall one week ago and tried to save her fall with extending at her right shoulder. Pain with motion at shoulder/night pain/ has not improved over last week. No cp/sob. +weakness Past Medical History Prior medical history: SBO status post exploratory laparotomy in 2006 Prior surgical history: Exploratory laparotomy, 1 Allergies: Denies Family History: Hypertension G8 MOTHER Hypotension G8 FATHER Allergies: Coded Allergies: NO KNOWN ALLERGIES (Unverified , 08/26/25) Current Medications Current Medications Medications (Trade) Dose Ordered Sig/Sapna Route PRN Reason Start Time Stop Time Status Last Admin Pantoprazole Sodium (Protonix) 40 mg DAILY IV 08/27/25 10:00 08/27/25 09:51 Review of Systems 10 point ROS is neg except per HPI Vital Signs Vital Signs Date Time Temp Pulse Resp B/P (MAP) Pulse Ox O2 Delivery O2 Flow Rate FiO2 08/28/25 05:00 97.7 67 20 118/77 (91) 97 97.7 08/27/25 20:00 Room Air* 0 21 Physical Exam NAD RUE: +TTP at shoulder Shoulder FF 150 abd 140 +neer/bedoya Labs/Diagnostic Data Labs Test 08/27/25 05:25 08/26/25 21:30 08/26/25 12:30 08/26/25 12:21 Range/Units White Blood Count 5.4 4.4-10.8 10^3/uL Red Blood Count 4.07 4.0-5.20 10^6/uL Hemoglobin 13.3 12.2-16.2 g/dL Hematocrit 38.8 36.0-46.0 % Mean Corpuscular Volume 95.3 80.0-100.0 fL Mean Corpuscular Hemoglobin 32.7 H 28.0-32.0 pg Mean Corpuscular Hemoglobin Concent 34.3 32.0-36.0 g/dL Red Cell Distribution Width 13.0 11.8-14.3 % Platelet Count 341 140-450 10^3/uL Mean Platelet Volume 7.8 6.9-10.8 fL Neutrophils (%) (Auto) 56.0 37.0-80.0 % Lymphocytes (%) (Auto) 32.2 10.0-50.0 % Monocytes (%) (Auto) 8.7 0.0-12.0 % Eosinophils (%) (Auto) 2.3 0.0-7.0 % Basophils (%) (Auto) 0.8 0.0-2.0 % Neutrophils # (Auto) 3.0 1.6-8.6 10 ^3/uL Lymphocytes # (Auto) 1.7 0.4-5.4 10 ^3/uL Monocytes # (Auto) 0.5 0-1.3 10 ^3/uL Eosinophils # (Auto) 0.1 0-0.8 10 ^3/uL Basophils # (Auto) 0 0-0.2 10 ^3/uL Nucleated Red Blood Cells 0.0 % Sodium Level 141 136-145 mmol/L Potassium Level 3.6 3.5-5.1 mmol/L Chloride Level 106 98-107 mmol/L Carbon Dioxide Level 23 20-31 mmol/L Anion Gap 12 5-15 Blood Urea Nitrogen 6 L 9-23 mg/dL Creatinine 0.62 0.550-1.02 mg/dL Glomerular Filtration Rate Calc 114 >90 mL/min BUN/Creatinine Ratio 9.7 L 10.0-20.0 Serum Glucose 76 74-106 mg/dL Calcium Level 9.0 8.7-10.4 mg/dL Troponin I High Sensitivity < 3 L </=34 ng/L Influenza Type A Antigen Negative Negative Influenza Type B Antigen Negative Negative SARS-CoV-2 Antigen (Rapid) Negative NEGATIVE Urine Color Light-yellow Yellow Urine Clarity Clear Clear Urine pH 6.5 5.0-9.0 Urine Specific [place] 1.010 1.001-1.035 Urine Protein Negative Negative Urine Ketones Negative Negative Urine Blood Negative Negative /uL Urine Nitrite Negative Negative Urine Bilirubin Negative Negative Urine Urobilinogen Normal Negative mg/dL Urine Leukocyte Esterase Negative Negative /uL Urine RBC 1 0 - 4 /hpf Urine Microscopic WBC 1 0-5 /HPF Urine Squamous Epithelial Cells Few <5 /hpf Urine Bacteria None seen None Seen /hpf Urine Glucose Normal Normal mg/dL Urine Test Negative Negative Urine Opiates Screen Neg NEGATIVE Urine Fentanyl Screen Neg NEGATIVE Urine Barbiturates Screen Neg NEGATIVE Urine Phencyclidine Screen Neg NEGATIVE Urine Amphetamines Screen Neg NEGATIVE Urine Benzodiazepines Screen Neg NEGATIVE Urine Cocaine Screen Neg NEGATIVE Urine Cannabinoids Screen Neg NEGATIVE Hemoglobin A1c 4.9 <5.7 % A1C Phosphorus Level 3.2 2.4-5.1 mg/dL Magnesium Level 2.0 1.6-2.6 mg/dL Total Bilirubin 0.6 0.2-1.0 mg/dL Direct Bilirubin 0.2 <0.3 mg/dL Aspartate Amino Transferase (AST) 23 13-40 U/L Alanine Aminotransferase (ALT) 28 7-40 U/L Alkaline Phosphatase 77 46-116 U/L Total Protein 7.9 5.7-8.2 g/dL Albumin 4.9 H 3.2-4.8 g/dL Vitamin B12 Level 1157 H 211-911 pg/mL Vitamin D 25-Hydroxy 38.5 30.0-100 ng/mL Thyroid Stimulating Hormone (TSH) 1.97 0.55-4.78 uIU/mL Plan/Recommendation 40 yo F with right shoulder partial thickness tear/ impingement 1. WBAT 2. sling for comfort 3. NSAID 4. fu in [facility] ortho clinic in 2 weeks 5. PT Plan discussed with: Patient ANDI KRAUSE MD Aug 28, 2025 06:47
[2025-08-28 09:00] VITALS: BP 122/84; PULSE 68; RESP 17; TEMP 98.1; O2SAT 97
[2025-08-28 13:00] VITALS: BP_SYST 117; BP_SYST 154; BP_DIAS 78; BP_DIAS 84; PULSE 76; PULSE 92; RESP 17; RESP 18; TEMP 97.2; TEMP 98; O2SAT 96
--- NOTE | 2025-08-28 14:54 | DVHPN2 ---
Subjective The patient is seen and examined at bedside. Still complain of pain. Reviewed: Care Plan, H&P, Labs, Medications, Previous Orders, Radiology Changes from previous H/P or p: No Changes Objective Vitals Vital Signs Date Time Temp Pulse Resp B/P (MAP) Pulse Ox O2 Delivery O2 Flow Rate FiO2 08/28/25 13:00 98.0 76 18 117/78 (91) 96 98.0 08/28/25 08:03 Room Air* 0 21 Intake/Output Intake and Output 08/28/25 07:00 Intake Total 1200 ml Balance 1200 ml Intake Oral 1200 ml # Voids 9 General Appearance: Alert, Oriented X3, Cooperative, No acute distress HEENT: Atraumatic, PERRLA, EOMI, Mucous membr. moist/pink Neck: Supple Lungs: Clear to auscultation, Normal air movement Cardiovascular: Regular rate, Normal S1, Normal S2, No murmurs, Gallops, Rubs Abdomen: Normal bowel sounds, Soft, No tenderness Neuro: Cranial nerves 3-12 NL Psych/Mental Status: Mental status NL Medications Current Medications Medications Dose Ordered Sig/Sapna Route Start Time Stop Time Status Last Admin Dose Admin Sodium Chloride 1,000 ml @ 50 mls/hr Q20H IV 08/26/25 21:00 08/28/25 13:17 50 MLS/HR Ketorolac Tromethamine 15 mg Q6HPRN PRN IV 08/27/25 03:00 09/01/25 02:59 08/28/25 13:17 15 MG Acetaminophen 325 mg Q4HP PRN PO 08/26/25 21:00 Hold Pantoprazole Sodium 40 mg DAILY IV 08/27/25 10:00 08/28/25 09:46 40 MG Laboratory Results Laboratory Tests 08/27/25 05:25 Urinalysis Test 08/26/25 12:30 Urine Color Light-yellow (Yellow) Urine Clarity Clear (Clear) Urine pH 6.5 (5.0-9.0) Urine Specific [place] 1.010 (1.001-1.035) Urine Protein Negative (Negative) Urine Ketones Negative (Negative) Urine Blood Negative /uL (Negative) Urine Nitrite Negative (Negative) Urine Bilirubin Negative (Negative) Urine Urobilinogen Normal mg/dL (Negative) Urine Leukocyte Esterase Negative /uL (Negative) Urine RBC 1 /hpf (0 - 4) Urine Microscopic WBC 1 /HPF (0-5) Urine Squamous Epithelial Cells Few /hpf (<5) Urine Bacteria None seen /hpf (None Seen) Urine Glucose Normal mg/dL (Normal) Urine Test Negative (Negative) Labs and/or images reviewed: Labs reviewed by me Assessment/Plan Assessment/Plan Intractable Arm Pain secondary to Right shoulder Avulsion fracture R/o Rotator cuff tear - Right shoulder xray: Calcification is noted in the soft tissue adjacent to the greater tuberosity of the proximal right humerus. This may represent an avulsion fracture calcified tendinitis. GERD Biliary sludge Viral syndrome Continuing current management. Continuing with pain medication. Appreciate orthopedic surgeon input. Orthopedic surgeon recommend. WBAT. sling for comfort, NSAID. The patient will be follow up in Orthopedic Clinic for two weeks. PT evaluation. This medical document was created using an electronic medical record system with [employer] direct computerized dictation system. Although this document has been carefully reviewed, there may still be some phonetic and typographical errors. These areas are purely typographical due to imperfections of the software programs, and do not reflect any compromise in the patient's medical care. Plan discussed with: Patient Date of Service: Aug 28, 2025 Billing Provider: ALPA RAMOS MD Common Visit Codes: [id number] INP/OBS CARE(HIGH) ALPA RAMOS MD Aug 28, 2025 14:54
--- NOTE | 2025-08-28 15:07 | DVHSR ---
APPROVED REPORT EXAM: Two-dimensional and M-mode echocardiogram with Doppler and color Doppler. Blood Pressure: 107/75 mmHg INDICATION Chest Pain RISK FACTORS Height: 5'2, Weight: 130 DIMENSIONS LVDd4.6 (3.8-5.7cm)LA (2D)3.6 (1.9-4.0cm)Aortic Root2.6 (2.0-3.7cm) LVDs2.2 (2.5-4.0cm)LA (MM) (1.9-4.0cm)Aortic Cusp Exc1.4 (1.5-2.0cm) EF (%) 60.0 (55-70%)Rt. Atrium4.0 (1.9-4.0cm)Asc. Aorta cm IVSd0.7 (0.7-1.1cm)RV (D) (1.8-2.4cm) PWd0.7 (0.7-1.1cm) Mitral Valve MitralMitral Stenosis E wave0.67m/sMV Mean GR.mmHg A wave0.69m/sMV Peak GR.43mmHg E/A ratio1.02D MVAcm2 DECEL [id number] 1/2 [place] Aortic Valve Aortic ValveAortic Stenosis V11.12m/Kenny Mean GR.4mmHg V21.28m/Kenny Peak GR.7mmHg LVOT Diameter1.8 (1.8-2.4cm)Doppler AVA2.23cm2 Pulmonic Valve V20.78m/s Tricuspid Valve TR Velocity2.20m/s [id number] Other Information Technically limited study due to pt had breast implants. patient position.body habitus. Conclusion Technically good study. Sinus rhythm. Mild concentric LVH with normal chamber sizes. Valves are normal. EF of 60% with normal RV function. Dopplers unremarkable. No pericardial effusion masses or vegetations.
[2025-08-28 17:00] VITALS: BP 136/85; PULSE 68; RESP 17; TEMP 98.4; O2SAT 97
[2025-08-28 21:15] VITALS: BP 126/71; PULSE 70; RESP 18; TEMP 97.9; O2SAT 96
[2025-08-29 01:14] VITALS: BP 122/71; PULSE 62; RESP 17; TEMP 98.1; O2SAT 95
[2025-08-29 05:32] VITALS: BP 119/80; PULSE 65; RESP 18; TEMP 97.3; O2SAT 93
[2025-08-29 09:00] VITALS: BP 124/72; PULSE 56; RESP 16; TEMP 98; O2SAT 96
[2025-08-29 13:00] VITALS: BP 116/72; PULSE 61; RESP 17; TEMP 98.1; O2SAT 98
[2025-08-29] MEDS ORDERED: HYDR-4902 PO (14:31)
[2025-08-29] MEDS ORDERED: IBUP-1456 PO (14:31)
--- NOTE | 2025-08-29 14:35 | DVHDS2 ---
Discharge Summary Date of Admission Aug 26, 2025 at 20:47 Date of Discharge: Aug 29, 2025 Admitting Diagnosis Intractable Arm Pain secondary to Right shoulder Avulsion fracture R/o Rotator cuff tear - Right shoulder xray: Calcification is noted in the soft tissue adjacent to the greater tuberosity of the proximal right humerus. This may represent an avulsion fracture calcified tendinitis. GERD Biliary sludge Viral syndrome Labs/Diagnostic Data: Laboratory Results Test 08/27/25 05:25 08/26/25 21:30 08/26/25 12:30 08/26/25 12:21 White Blood Count 5.4 10^3/uL (4.4-10.8) Red Blood Count 4.07 10^6/uL (4.0-5.20) Hemoglobin 13.3 g/dL (12.2-16.2) Hematocrit 38.8 % (36.0-46.0) Mean Corpuscular Volume 95.3 fL (80.0-100.0) Mean Corpuscular Hemoglobin 32.7 pg (28.0-32.0) Mean Corpuscular Hemoglobin Concent 34.3 g/dL (32.0-36.0) Red Cell Distribution Width 13.0 % (11.8-14.3) Platelet Count 341 10^3/uL (140-450) Mean Platelet Volume 7.8 fL (6.9-10.8) Neutrophils (%) (Auto) 56.0 % (37.0-80.0) Lymphocytes (%) (Auto) 32.2 % (10.0-50.0) Monocytes (%) (Auto) 8.7 % (0.0-12.0) Eosinophils (%) (Auto) 2.3 % (0.0-7.0) Basophils (%) (Auto) 0.8 % (0.0-2.0) Neutrophils # (Auto) 3.0 10 ^3/uL (1.6-8.6) Lymphocytes # (Auto) 1.7 10 ^3/uL (0.4-5.4) Monocytes # (Auto) 0.5 10 ^3/uL (0-1.3) Eosinophils # (Auto) 0.1 10 ^3/uL (0-0.8) Basophils # (Auto) 0 10 ^3/uL (0-0.2) Nucleated Red Blood Cells 0.0 % Sodium Level 141 mmol/L (136-145) Potassium Level 3.6 mmol/L (3.5-5.1) Chloride Level 106 mmol/L (98-107) Carbon Dioxide Level 23 mmol/L (20-31) Anion Gap 12 (5-15) Blood Urea Nitrogen 6 mg/dL (9-23) Creatinine 0.62 mg/dL (0.550-1.02) Glomerular Filtration Rate Calc 114 mL/min (>90) BUN/Creatinine Ratio 9.7 (10.0-20.0) Serum Glucose 76 mg/dL (74-106) Calcium Level 9.0 mg/dL (8.7-10.4) Troponin I High Sensitivity < 3 ng/L (</=34) Influenza Type A Antigen Negative (Negative) Influenza Type B Antigen Negative (Negative) SARS-CoV-2 Antigen (Rapid) Negative (NEGATIVE) Urine Color Light-yellow (Yellow) Urine Clarity Clear (Clear) Urine pH 6.5 (5.0-9.0) Urine Specific [place] 1.010 (1.001-1.035) Urine Protein Negative (Negative) Urine Ketones Negative (Negative) Urine Blood Negative /uL (Negative) Urine Nitrite Negative (Negative) Urine Bilirubin Negative (Negative) Urine Urobilinogen Normal mg/dL (Negative) Urine Leukocyte Esterase Negative /uL (Negative) Urine RBC 1 /hpf (0 - 4) Urine Microscopic WBC 1 /HPF (0-5) Urine Squamous Epithelial Cells Few /hpf (<5) Urine Bacteria None seen /hpf (None Seen) Urine Glucose Normal mg/dL (Normal) Urine Test Negative (Negative) Urine Opiates Screen Neg (NEGATIVE) Urine Fentanyl Screen Neg (NEGATIVE) Urine Barbiturates Screen Neg (NEGATIVE) Urine Phencyclidine Screen Neg (NEGATIVE) Urine Amphetamines Screen Neg (NEGATIVE) Urine Benzodiazepines Screen Neg (NEGATIVE) Urine Cocaine Screen Neg (NEGATIVE) Urine Cannabinoids Screen Neg (NEGATIVE) Hemoglobin A1c 4.9 % A1C (<5.7) Phosphorus Level 3.2 mg/dL (2.4-5.1) Magnesium Level 2.0 mg/dL (1.6-2.6) Total Bilirubin 0.6 mg/dL (0.2-1.0) Direct Bilirubin 0.2 mg/dL (<0.3) Aspartate Amino Transferase (AST) 23 U/L (13-40) Alanine Aminotransferase (ALT) 28 U/L (7-40) Alkaline Phosphatase 77 U/L (46-116) Total Protein 7.9 g/dL (5.7-8.2) Albumin 4.9 g/dL (3.2-4.8) Vitamin B12 Level 1157 pg/mL (211-911) Vitamin D 25-Hydroxy 38.5 ng/mL (30.0-100) Thyroid Stimulating Hormone (TSH) 1.97 uIU/mL (0.55-4.78) Other Laboratory Tests 08/27/25 05:25 Brief Hx & Hospital Course: This is a 40 years old female with past medical history of small-bowel obstruction status post exploratory laparotomy, emergency department because of right shoulder pain and weakness. Apparently a week ago she slipped and fell in her shower and grabbed onto a wall to avoid the for. We will then she hear a pop in her right shoulder. Since then she had an intense sharp pain of the right shoulder 10/10 aggravated by moving her arm, with no relief factor. She also had four day of subjective fever, chill, headache, fatigue and burning epigastric pain. The patient was admitted. The patient influenza and COVID was checked in his was negative. The patient x-ray of the right shoulder done showed calcification of soft tissue adjacent to the greater tuberosity of the proximal right humerus which may represent an avulsion fracture. The gallbladder ultrasound showed sludge without wall thickening and no Thapa sign. The patient was admitted. Orthopedic surgeon was consulted. His impression is the patient had right shoulder partial thickness tear/ impingement. He recommend : WBAT, sling for comfort, NSAID, follow up in [facility] ortho clinic in 2 weeks, PT. Her pain is much controlled today. I am going to discharge her home. Advised her to with sling as needed. Activity as tolerated. Diet per home diet. Do not carry any heavy object more than 5 lbs yet follow up with primary care physician 1-2 weeks. Follow up with orthopedic surgeon per schedule. Physical exam: HEENT: Normocephalic atraumatic pupils equal react to light and accommodation. Extraocular muscles intact, conjunctiva pink, oropharynx moist, no thrush, no exudate. Lymphatic: No lymphadenopathy Cardiovascular exam: S1, S2 was heard. No murmurs, rubs, gallops Lung: Clear on auscultation bilaterally, no wheeze, rale, rhonchi. GI: Abdominal soft, nondistended, nontenderness, positive bowel sounds. Extremity: No crepitus, cyanosis, edema. Pedal pulses present bilateral. Limited range of motion on the right upper extremity due to the injury. Skin: Normal turgor, no rash. Psych: Alert, oriented x3. Neurology: No focal deficits, cranial nerve II to XII grossly intact. This medical document was created using an electronic medical record system with [employer] direct computerized dictation system. Although this document has been carefully reviewed, there may still be some phonetic and typographical errors. These areas are purely typographical due to imperfections of the software programs, and do not reflect any compromise in the patient's medical care. Condition at Discharge: Stable Final Diagnosis/Problems List Intractable Arm Pain secondary to Right shoulder Avulsion fracture with right shoulder partial thickness tear/ impingement R/o Rotator cuff tear - Right shoulder xray: Calcification is noted in the soft tissue adjacent to the greater tuberosity of the proximal right humerus. This may represent an avulsion fracture calcified tendinitis. GERD Biliary sludge Viral syndrome Discharge Disposition: Home Discharge Instruct/Medications Diet: Regular Activity: See Comment Activity comment: Right arm on sling Follow Up/Referral: pcp 1-[address] Chicas per schedule Medications: see med list Scheduled PRN Hydrocodone-Acetaminophen (Hydrocodone Bitartrate/AC 5-325 mg), 1 TAB PO Q8HPRN PRN Ibuprofen (Ibuprofen), 1 TAB PO TID PRN Discharge Statement: "Patient was advised to return to the ER or call 911 if any headaches, dizziness, shortness of breath, chest pain, abdominal pain, bleeding, fevers, or worsening of medical condition. Patient was counseled about treatment plan, medications, possible side effects, patientverbalized understanding. All questions were answered to the best of my ability. This discharge took greater then 30 minutes in planning, reviewing documentation, counseling the patient, and discussing with other team members." ASSESSMENT ASSESSMENT Assessment humerus avulsion Date of Service: Aug 29, 2025 Billing Provider: ALPA RAMOS MD Common Visit Codes: 03386-[id number] DISCH DAY >30min ALPA RAMOS MD Aug 29, 2025 14:35
[2025-08-29 15:16] VITALS: BP 126/74; PULSE 66; RESP 20; TEMP 97.8; O2SAT 99
[2025-08-29 17:00] VITALS: BP 126/77; PULSE 67; RESP 18; TEMP 97.8; O2SAT 97
== END 2025-08-29 18:00 | disposition home or self-care (01) | DRG 342 ==
LOC: EDBD 11:44 → ER 11:44 → OVERFLOW 20:47 → WEST WING 22:06
PROVIDERS: ADMIT Internal Medicine; ATTEND Internal Medicine
DX: S42.301A Unspecified fracture of shaft of humerus, right arm, initial encounter for closed fracture (principal); B34.9 Viral infection, unspecified; K21.9 Gastro-esophageal reflux disease without esophagitis; K82.8 Other specified diseases of gallbladder; Z20.822 Contact with and (suspected) exposure to COVID-19; W01.0XXA Fall on same level from slipping, tripping and stumbling without subsequent striking against object, initial encounter; Y93.89 Activity, other specified; Y92.89 Other specified places as the place of occurrence of the external cause; Y99.8 Other external cause status; Z82.49 Family history of ischemic heart disease and other diseases of the circulatory system
CPT/HCPCS: 36415; 71046; 73030; 73221; 76705; 80048; 80076; 80307; 81001; 81025; 82306; 82607; 83036; 83735; 84100; 84443; 84484; 85025; 87426; 87804; 93306; 96361; 96374; G0378; J1885; J2405; J2470